=== PATIENT | female | born 1990 | race Asian ===

== ENCOUNTER 2022-06-04 09:15 | Inpatient (IN) ==
[~2022-06-04 09:15] MED LIST: CITRIC ACID/SODIUM CITRATE 15 ML UDC PO SCH; ceFAZolin 2000MG 2,000 MG/15 ML SYR IV SCH
[2022-06-04 09:55] LABS: Basophils # (auto) 0.02 K/uL (0-0.2); Basophils % (auto) 0.2 %; Eosinophils % (auto) 0.9 %; Hematocrit (blood only) 30.7 % (34.1-44.9); Hemoglobin 9.8 g/dl (12.0-16.0); Immature Granulocytes # (auto) 0.05 K/uL (0.00-0.02); Immature Granulocytes % (auto) 0.5 %; Lymphocytes # (auto) 1.51 K/uL (1.2-3.4); Lymphocytes % (auto) 13.9 %; Mean Corpuscular Hemoglobin 19.3 pg (25.0-34.0); Mean Corpuscular Hgb Conc 31.9 g/dL (32.0-36.0); Mean Corpuscular Volume 60.6 fL (80.0-100.0); Monocytes # (auto) 0.69 K/uL (0.24-0.82); Monocytes % (auto) 6.4 %; Neutrophils # (auto) 8.46 K/uL (1.4-6.5); Neutrophils % (auto) 78.1 %; RDW Coefficient of Variation 17.3 % (11.5-14.5); RDW Standard Deviation 34.3 fL (36.4-46.3); Red Blood Count 5.07 M/uL (3.93-5.22); White Blood Count 10.83 K/ul (4.8-10.8)
[2022-06-04 10:19] LABS: Mean Platelet Volume 9.9 fL (9.4-12.3); Microcytosis Present; Platelet Count 242 K/uL (130-400); Polychromasia 1+
[2022-06-04] MEDS ORDERED: SODIUM CHLORIDE 0.9% 250 ML IV PRN (10:31)
[2022-06-04] MEDS ORDERED: LACTATED RINGER'S 1,000 ML IV SCH ×3 (11:30→14:00)
--- NOTE | 2022-06-04 12:05 | History & Physical Report ---
Date of Service June 04, 2022 Assessment & Plan (1) Vasa previa complicating labor and delivery: Plan IUP at 37 weeks with possible vasa previa or presenting umbilical cord with risk for hemorrhage or cord prolapse because of the increased risk for emergent intervention because of either bleeding or prolapse, we will proceed with LTCS the procedure and it's risks were reviewed in detail with the patient and her and all questions were answered to their satisfaction. Admission and Anticipated Discharge Date Admission Date: June 04, 2022 History of Present Illness Primary Care Provider: Ebony Muhammad MD Patient is a 31 yo female EDC 06/25/22 who presents at 37 0/7 weeks with potential vasa previa noted on ultrasound done for low lying placenta. the placenta is now no longer low lying but there is a highly vascular area next to the cervix which may be the umbilical cord and potentially a vasa previa or presenting umbilical cord. It had not been seen prior to the ultrasound done at 36 5/7 weeks. after discussion with [facility] [place] [facility] , they concur that at 37 weeks and risk for vasa previa that we should proceed with section. she has had no bleeding or leaking fluid. otherwise was complicated by beta thalassemia and anemia for which she has received 3 iron infusions and is now on daily oral iron supplementation. her does not have this thalassemia trait. the findings on ultrasound were reviewed with the patient again and they would like to proceed with section. Allergies Allergy/AdvReac Type Severity Reaction Status Date / Time No Known Allergies Allergy Verified 06/02/22 10:36 Home Medications Medication Instructions Recorded Confirmed Type prenat.vits,ha,bzp-pkkw-tazcw 1 tab PO DAILY 11/11/21 06/04/22 History breast pump #1 ea 04/07/22 06/02/22 Rx Patient History Medical History (Updated 06/04/22 @ 12:13 by Olena Donnelly MD, FACOG) Anemia affecting Iron infusions and B12 injections Low lying placenta nos or without hemorrhage, third trimester No pertinent past medical history PCOS (polycystic ovarian syndrome) Surgical History No pertinent past surgical history Family History Father Colorectal cancer, Onset Age: 67 Mother Diabetes Hypertension Denies family history of Ovarian cancer Breast cancer Uterine cancer Social History Smoking Status: Never smoker Hx Alcohol Use: No Hx Substance Use: No Preferred Language: Kittitian Tag Meter Operator Required: No Beliefs That Will Affect Care: None marital status: marital status details: Marlo (34) [phone] Current Living Situation: Spouse Current Living Situation Comment: lives with spouse, no pets. current occupational status: unemployed Feels Safe at Home: Yes Safety Concerns: Feels Safe At This Time Review of Systems All systems reviewed & are unremarkable except as noted in HPI & below Physical Exam Constitutional: WD/WN, vitals as above Respiratory: normal respiratory effort, lungs clear to auscultation Cardiovascular: RRR, no murmur, no edema Psychiatric: A+Ox3, euthymic affect Genitourinary: OB Exam Abdomen: + vertex, + estimated weight (6-7 pounds) and + irregular contractions OB Exam Monitor Tracing: + external FHT monitor used, + external uterine monitor used, + category I and + normal FHT variability Results & Data ([facility]) Vital Signs (Past 12 Hours) Vital Signs Temp Pulse Resp BP O2 Del Method 06/04/22 09:36 98.6 F 16 Room Air 06/04/22 09:27 85 124/86 Code Status & VTE Plan VTE Prophylaxis Plan VTE Prophylaxis will be ordered: No Coding Level of Care Code None Diagnoses Vasa previa complicating labor and delivery O69.4XX0
--- NOTE | 2022-06-04 12:27 | Anesthesiology Consultation ---
Date of Service June 04, 2022 The patient has a possible vasa previa as well as Beta Thalassemia. I discussed the increased risk of blood transfusion with the patient. Assessment & Plan Chart Review Chart Review: Acceptable Risk for Surgery and Patient NOT seen in Pre Admission Testing Consults Requested none ASA ASA2 Proposed Anesthesia Anesthesia Type: MAC Spinal Risk / Benefits Reviewed With: PT / POA / Parent / Guardian, Accepts Plan and Informed Consent Obtained History Surgery Operation Date: 06/04/22 09:30 Proposed Procedures p Section in LD - Olena Donnelly MD, FACOG Height/Weight Height: 5 ft 3 in Weight: 75.296 kg Allergies Allergy/AdvReac Type Severity Reaction Status Date / Time No Known Allergies Allergy Verified 06/02/22 10:36 Medications Home Medications Medication Instructions Recorded Confirmed Last Taken prenat.vits,ha,cxp-wsqm-hjffd 1 tab PO DAILY 11/11/21 06/04/22 06/03/22 12:00 breast pump #1 ea 04/07/22 06/02/22 Unknown Active Medications Generic Name Dose Route Start Last Admin Trade Name Tyrelq PRN Reason Stop Dose Admin Cefazolin Sodium 2,000 mg in 15 mls @ 3.75 mls/min 06/04/22 06:00 06/04/22 12:26 Ancef 2000mg IV 06/05/22 05:59 3.75 mls/min PREOP YESSICA Administration Protocol NPO Date Last Intake of Fluids: 06/04/22 Time Last Intake of Fluids: 08:00 Date Last Intake of Solids: 06/04/22 Time Last Intake of Solids: 08:00 Past Medical History Medical History Anemia affecting Iron infusions and B12 injections Beta thalassemia Low lying placenta nos or without hemorrhage, third trimester No pertinent past medical history PCOS (polycystic ovarian syndrome) Exercise / Class Metabolic Activity II 4-5 Yardwork/Stairs/Walk up hill Past Family History Family History Father Colorectal cancer, Onset Age: 67 Mother Diabetes Hypertension Denies family history of Ovarian cancer Breast cancer Uterine cancer Past Surgical History Surgical History No pertinent past surgical history Past Anesthesia History No Hx of Anesthesia Complications and No Family Hx of Anesthesia Complications History of PONV No Hx of PONV and No Hx of Motion Sickness Social History Smoking Status: Never smoker Hx Alcohol Use: No Hx Substance Use: No substance use type: does not use Review of Systems no chest pain or sob Physical Exam Vital Signs Last Vital Signs Temp 37.0 C 06/04/22 09:36 Pulse 85 06/04/22 09:27 Resp 16 06/04/22 09:36 BP 124/86 06/04/22 09:27 O2 Del Method 06/04/22 09:36 SpO2 99 RA ENMT Mouth: no TMJ abnormality Thyromental Distance: > or= 3.5 Finger Breadths Mallampati Class: II Neck normal visual inspection Respiratory normal respiratory effort Auscultation: lungs clear to auscultation bilaterally Cardiovascular Rate/Rhythm: regular rate and regular rhythm Musculoskeletal Spine: normal cervical ROM Neurologic moves all extremities Psychiatric Orientation: alert and oriented x 3 Testing Laboratory Results 06/04/22 09:38 Blood Type O Positive 06/04/22 09:38 Antibody Screen NEGATIVE 06/04/22 09:38
[2022-06-04] MEDS ORDERED: MoRPHine SULFATE PF 1 MG/ML 10 ML AMP/VIAL INT SPINAL ONE (12:28)
[2022-06-04] MEDS ORDERED: NALOXONE HCL 0.4 MG/1 ML VIAL/CARP IV PRN (12:28)
[2022-06-04] MEDS ORDERED: NALOXONE HCL 1 MG in SODIUM CHLORIDE 0.9% 1000ML 1,000 ML IV PRN (12:28)
[2022-06-04] MEDS ORDERED: HYDROmorphone INJ 0.5 MG/0.5 ML SYR IV PRN (12:28)
[2022-06-04] MEDS ORDERED: ePHEDrine sulfate 50 MG/ML AMP IV PRN (12:28)
[2022-06-04] MEDS ORDERED: LACTATED RINGER'S 500 ML IV PRN (12:28)
[2022-06-04] MEDS ORDERED: KETOROLAC 30 MG/ML VIAL IV PRN (12:28)
[2022-06-04] MEDS ORDERED: diphenhydrAMINE 50 MG/ML VIAL IV PRN (12:28)
[2022-06-04] MEDS ORDERED: NALOXONE HCL 0.08 MG in SYRINGE 1.8 ML IV PRN (12:28)
[2022-06-04] MEDS ORDERED: NALBUPHINE HCL INJ 10 MG/ML AMP IV PRN (12:28)
[2022-06-04] MEDS ORDERED: SODIUM CHLORIDE 0.9% 1000ML 1,000 ML IV SCH (12:30)
[2022-06-04] MEDS ORDERED: NO NARCOTICS OR SEDATIVES SCH (12:30)
[2022-06-04] MEDS ORDERED: DC INTRASPINAL MORPHINE SCH (12:30)
[2022-06-04] MEDS ORDERED: MoRPHine SULFATE PF 1 MG/ML 10 ML AMP/VIAL ONE (12:31)
[2022-06-04] MEDS ORDERED: fentaNYL citrate 100 MCG/2 ML VIAL ONE (12:31)
[2022-06-04] MEDS ORDERED: OXYTOCIN 10 UNITS/ML 10ML VIAL ONE (12:43)
[2022-06-04] MEDS ORDERED: PHENYLEPHRINE 100MCG/ML 5ML SYR ONE (12:43)
--- NOTE | 2022-06-04 13:34 | Post Operative Brief Note ---
PG Immediate Post Op with CF Date of Surgery June 04, 2022 Pre & Post Diagnosis Operation Date: 06/04/22 09:30 Pre-Op Diagnosis: Potential vasa previa or presentation with umbilical cord Post-Op Diagnosis: no vasa previa- possible occult prolapse cord I identified the patient and participated in the time-out.: Yes Procedure Operation Date: 06/04/22 09:30 Actual Procedures p Section in LD; Live male child at 1258(Bilateral) - Olena Burrell MD, FACOG Surgeon Olena Donnelly MD, FACOG Engineer Systems Izzy Huerta MD Estimated Blood Loss 500 Findings Consistent with Post-Op Diagnosis normal uterus tubes and ovaries no vasa previa Specimens Specimen Description: A: Placenta-exam B: Cord blood Drains Catherine Catheter (Patent and draining clear yellow urine during procedure.) Anesthesia Type Spinal Complications none Disposition Accompanied Patient To Recovery: Yes
[2022-06-04] MEDS ORDERED: SENNA 8.6 MG TAB PO PRN (13:54)
[2022-06-04] MEDS ORDERED: DIPHTHERIA/TETANUS/PERTUSSIS 0.5 ML SYR/VIAL IM ONE (13:54)
[2022-06-04] MEDS ORDERED: MAGNESIUM HYDROXIDE SUSP 30 ML UDC PO PRN (13:54)
[2022-06-04] MEDS ORDERED: BENZOCAINE 20% AER SPR 82.5 GM CAN EXT PRN (13:54)
[2022-06-04] MEDS ORDERED: HYDROCORTISONE ACETATE 25 MG SUPP PR PRN (13:54)
--- NOTE | 2022-06-04 14:24 | Anesthesiology Progress Note ---
Date of Service June 04, 2022 Anesthesia Post Procedure Vital Signs Vital Signs: Temp Pulse Resp BP Pulse Ox O2 Del Method 06/04/22 09:36 37.0 C 16 Room Air 06/04/22 14:21 104 H 150/92 H 06/04/22 14:17 109 H 97 06/04/22 14:12 66 100 06/04/22 14:07 56 L 100/63 98 06/04/22 14:02 57 L 99 06/04/22 13:59 62 90/57 L 06/04/22 13:57 57 L 100 06/04/22 13:58 55 L 88/54 L 06/04/22 13:52 57 L 100 06/04/22 13:47 54 L 101/56 L 100 06/04/22 13:42 60 100 06/04/22 13:37 100 06/04/22 13:37 59 L 06/04/22 13:37 58 L 98/57 L 06/04/22 09:27 85 124/86 Transfer of Care Handoff Completed per policy Notes Mental Status: alert / awake / arousable Patient Amnestic to Procedure: Yes Nausea / Vomiting: adequately controlled Pain: adequately controlled Airway Patency, RR, SpO2: stable & adequate BP & HR: stable & adequate Hydration State: stable & adequate Neuraxial Anesthesia: was administered and sensory block is resolving Anesthetic Complications: no major complications apparent and Pt Satisfied with anesthetic care Notes: The patient's SBP went down to the 80s in recovery. She was given a 500 ml bolus of LR and a dose of ephedrine. SBP is now in the 150s.
--- NOTE | 2022-06-04 15:14 | Operative Report ---
PG Post Operative Report Pre & Post Diagnosis Operation Date: 06/04/22 09:30 Pre-Op Diagnosis: Potential vasa previa or presentation with umbilical cord IUP at 37 weeks Post-Op Diagnosis: same- no evidence of vasa previa plus delivery of a viable male I identified the patient and participated in the time-out.: Yes Procedure Operation Date: 06/04/22 09:30 Actual Procedures p low transverse Section in LD; Live male child at 1258(Bilateral) - Olena Donnelly MD, FACOG Surgeon Olena Donnelly MD, FACOG Painter Sign Maintenance Izzy Huerta MD Estimated Blood Loss 500 Findings Consistent with Post-Op Diagnosis Specimens placenta Drains Catherine to straight drainage Anesthesia Type Spinal Complications none Disposition Accompanied Patient To Recovery: Yes Indications suspected vasa previa or occult umbilical cord prolapse noted on ultrasound done to assess low lying placenta. the placenta was no longer low lying but there is highly vascular area lateral to the cervix possiby consistent with umbilical cord. the suspicion for vasa previa was noted or possibly a loop of umbilical cord next to the cervix. after consulting with [facility], in light of a potentially catastrophic bleed and since she is now at 37 weeks, it seemed prudent to proceed with delivery now. The patient and her were counseled on the risks of proceeding with section versus observation at this time. They readily agreed to proceeding with section to prevent potential catastrophic event leading to an emergency section. All the questions were answered to their satisfaction and they are willing to proceed. Description of Procedure As the patient received effective subarachnoid block she was prepped and draped in usual sterile fashion. A low transverse skin incision was made with scalpel and carried to the fascia with the same scalpel. The fascial incision was then extended with Whitlock scissors and the underlying rectus muscles bluntly sharply dissected off of the overlying fascia. The rectus muscles were bluntly divided in the midline and the underlying peritoneum elevated and entered sharply. The bladder was then taken down off the anterior surface of the uterus with Metzenbaum scissors and placed behind the bladder blade. The lower uterine segment was entered with a scalpel and extended bluntly in a transverse fashion. Membranes ruptured for clear fluid. The was delivered from the vertex presentation with moderate fundal pressure. The rest of the delivered easily through the incision. He has a viable male and he is vigorous at . The cord was clamped and cut and the infant handed off to Dr. Anne who was attendance as retort operator. The placenta was then expressed intact with a three-vessel cord. There is no evidence of vasa previa. The uterus was then exteriorized and covered with a clean lap sponge. The uterine cavity was then cleared of some retained membranes. The uterus was then closed in 2 layers with a running locking imbricating fashion with 0 Monocryl suture. Hemostasis appeared to be excellent. A small amount of blood was suctioned from the posterior cul-de-sac. The uterus was then placed back inside the abdominal cavity. The uterine incision was examined once more and continue to have excellent hemostasis. The gutters were cleared of some clot. The rectus muscle were then brought together in the midline with individual stitches of 0 Monocryl. The fascia was closed in a running fashion with 0 Vicryl. After irrigating the adipose layer, the skin edges were reapproximated with a subcuticular stitch of 4-0 Vicryl. Mother and infant were doing well after delivery and stable upon arrival in recovery room. I attest to the content of the Intraoperative Record and any orders documented therein. Any exceptions are noted below. OB Procedure Charges 96793
[2022-06-04] MEDS: OXYTOCIN 20 UNITS in LACTATED RINGER'S 1,000 ML IV SCH ×2 (16:15→23:33)
[2022-06-04] MEDS: SIMETHICONE 80 MG CHEW PO SCH ×2 (17:31→20:34)
[2022-06-04] MEDS: DOCUSATE SODIUM 100 MG CAP PO SCH (20:34)
[2022-06-05] MEDS ORDERED: CITRIC ACID/SODIUM CITRATE 15 ML UDC PO SCH (06:00)
[2022-06-05 06:14] LABS: Hematocrit (blood only) 24.2 % (34.1-44.9); Hemoglobin 7.9 g/dl (12.0-16.0); Mean Corpuscular Hemoglobin 19.6 pg (25.0-34.0); Mean Corpuscular Hgb Conc 32.6 g/dL (32.0-36.0); RDW Coefficient of Variation 16.2 % (11.5-14.5); RDW Standard Deviation 33.8 fL (36.4-46.3); Red Blood Count 4.03 M/uL (3.93-5.22); White Blood Count 11.83 K/ul (4.8-10.8)
[2022-06-05] MEDS ORDERED: PROMETHAZINE HCL 25 MG in SODIUM CHLORIDE 0.9% 50 ML IV PRN (06:29)
[2022-06-05] MEDS ORDERED: KETOROLAC 30 MG/ML VIAL IV PRN (06:29)
[2022-06-05] MEDS ORDERED: diphenhydrAMINE 50 MG/ML VIAL IV PRN (06:29)
[2022-06-05] MEDS ORDERED: MEPERIDINE HCL 50 MG/ML CARP IV PRN (06:29)
[2022-06-05] MEDS ORDERED: ONDANSETRON INJ 2 MG/ML 2 ML VIAL IV PRN (06:29)
[2022-06-05] MEDS ORDERED: diphenhydrAMINE Capsule 25 MG CAP PO PRN (06:29)
[2022-06-05 06:37] LABS: Basophils # (auto) 0.02 K/uL (0-0.2); Basophils % (auto) 0.2 %; Eosinophils # (auto) 0.23 K/uL (0-0.50); Eosinophils % (auto) 1.9 %; Immature Granulocytes # (auto) 0.04 K/uL (0.00-0.02); Immature Granulocytes % (auto) 0.3 %; Lymphocytes # (auto) 1.47 K/uL (1.2-3.4); Lymphocytes % (auto) 12.4 %; Mean Platelet Volume 11.3 fL (9.4-12.3); Microcytosis Present; Monocytes # (auto) 0.72 K/uL (0.24-0.82); Monocytes % (auto) 6.1 %; Neutrophils # (auto) 9.35 K/uL (1.4-6.5); Neutrophils % (auto) 79.1 %; Platelet Count 180 K/uL (130-400)
--- NOTE | 2022-06-05 07:09 | Obstetrical Progress Note ---
Date of Service <Filiberto BranchLien Valentin DO - Last Filed: 06/05/22 07:43> June 05, 2022 Assessment & Plan <Filiberto BranchLien Valentin DO - Last Filed: 06/05/22 07:43> (1) Encounter for care after hospital delivery: (2) Postcesarean section: Plan - Feels well today. Eating well, - Will remove Storey today and get moving. - Pain well controlled with ibuprofen 600mg Q4H PRN - Routine care -- OOB, ambulation, diet progression as tolerated - After discharge will have 6 week follow-up with Dr. Burrell - h/o Beta thalassemia, Hgb 7.9 this morning, stable at this time. Will continue to trend in AM labs. <Olena Donnelly MD, FACOG - Last Filed: 06/05/22 08:13> (1) Encounter for care after hospital delivery: (2) Postcesarean section: Subjective <Filibertozachariah Valentin DO - Last Filed: 06/05/22 07:43> Ambulation: limited ambulation Voiding: storey catheter in place Passing Gas:: Yes Diet Tolerance:: regular diet Lochia:: Small Feeding Type:: breast feeding Current Pain Level(1-10): 4 Patient is a 31 y/o female who is POD #1 following delivery at 37 weeks. She reports feeling well overall this morning. Moderate abdominal cram ping & 4/10 pain well managed on analgesics. Storey in place. Tolerating meals overnight and has not tried to ambulate yet. Able to pass gas. Has some persistent lochia with some improvement this morning. Currently breast feeding. Review of Systems Denies fever, chills, sweats Denies shortness of breath, difficulty breathing, chest pain, palpitations, chest pressure. Denies breast pain. Denies dysuria. Denies headache or changes in vision. Physical Exam <Filibertozachariah Valentin DO - Last Filed: 06/05/22 07:43> General: Alert, oriented. No acute distress. Cardiac: Regular rate and rhythm, no murmurs/rubs/gallops. Respiratory: Clear to auscultation bilaterally a/p, no wheezes/rales/rhonchi. No increased work of breathing. Symmetrical chest rise. No respiratory distress. Abdomen: Soft, nontender, nondistended. Bowel sounds present. Uterus: Uterine fundus firm, palpable 1 cm below umbilicus. Lower Extremities: No lower extremity edema or swelling. No deep calf pain. Thao's negative bilaterally. Results & Data ([facility]) <Filiberto Valentin DO - Last Filed: 06/05/22 07:43> Vital Signs (Past 12 Hours) Vital Signs Temp Pulse Resp BP Pulse Ox O2 Del Method 06/05/22 05:00 16 97 06/05/22 06:00 18 98 06/05/22 04:15 18 97 06/05/22 01:25 18 97 06/05/22 02:10 16 99 06/05/22 00:31 18 97 06/04/22 22:15 18 99 06/04/22 21:20 18 98 06/04/22 20:30 16 97 06/05/22 03:45 36.9 C 86 18 111/72 96 Room Air 06/05/22 03:45 18 98 06/04/22 23:30 36.9 C 78 18 96/59 L 98 Room Air 06/04/22 23:30 18 96 06/04/22 19:40 37 C 82 18 111/75 98 Room Air 06/04/22 19:40 18 96 <Olena Donnelly MD, FACOG - Last Filed: 06/05/22 08:13> Co-Signing Physician Notes Resident Physician Supervision Note: I interviewed and examined the patient. Discussed with Dr. Valentin and agree with findings and plan as documented in the note. Any exceptions or clarifications are listed here: [None] Documented By: Olena Donnelly MD, FACOG Resident Activity Tracking <Filiberto Valentin DO - Last Filed: 06/05/22 07:43> Resident Involvement: Resident Care Provided Care Provided: OB Delivery
[2022-06-05] MEDS: IBUPROFEN 600 MG TAB PO PRN ×3 (08:00→20:44)
[2022-06-05] MEDS: SIMETHICONE 80 MG CHEW PO SCH ×4 (08:01→20:43)
[2022-06-05] MEDS: FERROUS SULFATE 325 MG TAB PO SCH (08:01)
[2022-06-05] MEDS: DOCUSATE SODIUM 100 MG CAP PO SCH ×2 (08:01→20:43)
[2022-06-05] MEDS: PRENATAL VITAMIN 1 TAB PO SCH (08:01)
[2022-06-05] MEDS: oxyCODONE/ACETAMINOPHEN 5mg/325mg TAB PO PRN ×3 (08:03→20:43)
[2022-06-05] MEDS ORDERED: bisacodyL 5 MG TABEC PO SCH (20:00)
[2022-06-06] MEDS: IBUPROFEN 600 MG TAB PO PRN ×3 (04:58→13:41)
[2022-06-06] MEDS: oxyCODONE/ACETAMINOPHEN 5mg/325mg TAB PO PRN ×3 (04:58→13:41)
--- NOTE | 2022-06-06 07:03 | Obstetrical Progress Note ---
Date of Service <Filiberto Valentin DO - Last Filed: 06/06/22 07:03> June 06, 2022 Assessment & Plan <Filiberto Valentin DO - Last Filed: 06/06/22 07:03> (1) Encounter for care after hospital delivery: (2) Postcesarean section: Plan - Feels well today. Eating well, voiding well, ambulating well. - Pain well controlled with ibuprofen 600mg Q4H PRN - Routine care -- OOB, ambulation, diet progression as tolerated - After discharge will have 6 week follow-up with Dr. Burrell - h/o Beta thalassemia, Hgb 7.9 yesterday, stable at this time. - Plan to D/C today <Izzy Huerta MD, FACOG - Last Filed: 06/06/22 07:20> (1) Encounter for care after hospital delivery: (2) Postcesarean section: Subjective <Filiberto Valentin DO - Last Filed: 06/06/22 07:03> Ambulation: ambulating normally Voiding: no voiding problems Passing Gas:: Yes Diet Tolerance:: regular diet Lochia:: Small Feeding Type:: breast feeding Current Pain Level(1-10): 0 Patient is a 31 y/o female who is POD #2 following delivery at 37 weeks. She reports feeling well overall this morning. Moderate abdominal cramping & 3-4/10 pain well managed on analgesics. Voiding well. Tolerating meals overnight and able to ambulate some. Able to pass gas and has had a normal bowel movement. Has some persistent lochia with some improvement this morning. C urrently breast feeding. Review of Systems Denies fever, chills, sweats Denies shortness of breath, difficulty breathing, chest pain, palpitations, mariza st pressure. Denies breast pain. Denies dysuria. Denies headache or changes in vision. Physical Exam <Filiberto Valentin DO - Last Filed: 06/06/22 07:03> General: Alert, oriented. No acute distress. Cardiac: Regular rate and rhythm, no murmurs/rubs/gallops. Respiratory: Clear to auscultation bilaterally a/p, no wheezes/rales/rhonchi. No increased work of breathing. Symmetrical chest rise. No respiratory distress. Abdomen: Soft, nontender, nondistended. Bowel sounds present. Uterus: Uterine fundus firm, palpable 2 cm below umbilicus. Lower Extremities: No lower extremity edema or swelling. No deep calf pain. Thao's negative bilaterally. Results & Data ([facility]) <Filiberto Valentin DO - Last Filed: 06/06/22 07:03> Vital Signs (Past 12 Hours) Vital Signs Temp Pulse Resp BP BP Pulse Ox O2 Del Method 06/05/22 23:24 36.4 C L 65 18 98/65 L 99 Room Air 06/05/22 19:09 36.5 C 80 18 107/69 99 Room Air <Izzy Huerta MD, FACOG - Last Filed: 06/06/22 07:20> Co-Signing Physician Notes Resident Physician Supervision Note: I interviewed and examined the patient. Discussed with Dr. Valentin and agree with findings and plan as documented in the note. Any exceptions or clarifications are listed here: [None] Documented By: Izzy Huerta MD, FACOG Resident Activity Tracking <Filiberto Valentin DO - Last Filed: 06/06/22 07:03> Resident Involvement: Resident Care Provided Care Provided: OB Delivery
[2022-06-06 08:05] LABS: Hematocrit (blood only) 23.4 % (34.1-44.9); Hemoglobin 7.4 g/dl (12.0-16.0)
[2022-06-06] MEDS: PRENATAL VITAMIN 1 TAB PO SCH (09:10)
[2022-06-06] MEDS: FERROUS SULFATE 325 MG TAB PO SCH (09:11)
[2022-06-06] MEDS: SIMETHICONE 80 MG CHEW PO SCH ×2 (09:11→13:41)
[2022-06-06] MEDS: DOCUSATE SODIUM 100 MG CAP PO SCH (09:11)
[2022-06-06] MEDS ORDERED: bisacodyL 10 MG SUPP PR PRN (13:54)
== END 2022-06-06 16:04 | disposition home or self-care (01) | DRG 788 ==
LOC: 4S1 09:15 → 4E2 16:30